=== PATIENT | female | born 1980 | race Caucasian/White ===

== ENCOUNTER 2023-05-21 12:29 | Outpatient (CLI) | payer BC | END 2023-05-21 12:30 | disposition home or self-care (01) | LOC: CSHLAB 12:29 | PROVIDERS: ATTEND Obstetrics & Gynecology | DX: Z01.812 Encounter for preprocedural laboratory examination (principal); D25.9 Leiomyoma of uterus, unspecified | CPT/HCPCS: 84703; 85027; 86850; 86900; 86901 ==

== ENCOUNTER 2023-05-27 07:40 | Observation (INO) | payer BC ==
[2023-05-21 13:02] VITALS: BMI 23.6
[2023-05-21 14:00] LABS: Hematocrit 37.7 % (34.9-44.5); Hemoglobin 12.6 g/dL (12.0-15.5); Mean Corpuscular HGB CONC 33.4 g/dL (32.0-36.0); Mean Corpuscular Hemoglobin 26.6 pg (27.0-33.0); Mean Corpuscular Volume 79.7 fl (81.6-98.3); Mean Platelet Volume 10.7 fl (7.4-10.4); Platelet Count 328 10x3/uL (150-450); RBC Distribution Width 22.6 % (11.5-14.5); Red Blood Cell (RBC) Count 4.73 10x6/uL (3.90-5.03); White Blood Cell (WBC) Count 8.8 10x3/uL (3.5-10.5)
[2023-05-21 15:23] LABS: BHCG - Serum Negative (NEGATIVE); Pregs Control Background? CLEAR/WHITE (CLR/WHITE); Pregs Control Bar Appear? YES (CONTROL BAR)
[2023-05-27] MEDS ORDERED: CeleCOXIB 100 MG CAP ONE (07:57)
[2023-05-27] MEDS ORDERED: Famotidine/PF 20 mg/2ml Vial ONE (07:58)
[2023-05-27] MEDS ORDERED: Gabapentin 300 MG CAP ONE ×2 (07:58→08:13)
[2023-05-27] MEDS ORDERED: Bupivacaine PF 0.5% 30 ML VIAL ONE (09:47)
[2023-05-27] MEDS ORDERED: PROPOFOL 20 ML ONE (09:47)
[2023-05-27] MEDS ORDERED: Ondansetron PF 4 MG/2 ML Vial ONE (09:47)
[2023-05-27] MEDS ORDERED: Dexamethasone 20 MG/5 ML VIAL ONE (09:47)
[2023-05-27] MEDS ORDERED: fentaNYL 50 mcg/mL 1 mL Vial ONE (09:47)
[2023-05-27] MEDS ORDERED: Lidocaine 1% PF 5 ML VIAL ONE (09:47)
[2023-05-27] MEDS ORDERED: Rocuronium Bromide 10 MG/ML (10ML VIAL) ONE (09:47)
[2023-05-27] MEDS ORDERED: HYDROmorphone 0.5 MG/0.5 ML SYRINGE ONE (09:50)
[2023-05-27] MEDS ORDERED: SUGAMMADEX SODIUM 200 MG/2 ML VIAL ONE (09:51)
[2023-05-27] MEDS ORDERED: CEFAZOLIN 2 GM VIAL ONE (09:57)
[2023-05-27] MEDS ORDERED: Midazolam HCl 2 mg/2 ml Vial ONE (10:06)
[2023-05-27] MEDS ORDERED: ePHEDrine Sulfate 50 MG/10 ML VIAL ONE (11:14)
[2023-05-27] MEDS ORDERED: Ketorolac Tromethamine 30 MG (1 mL) VIAL ONE (11:37)
[2023-05-27] MEDS ORDERED: HYDROcodone/Acetaminophen 10/325 mg Tablet PO PRN (13:43)
[2023-05-27] MEDS ORDERED: diphenhydrAMINE 25 MG CAP PO PRN (13:43)
[2023-05-27] MEDS ORDERED: Bisacodyl 10 MG SUPP PR PRN (13:43)
[2023-05-27] MEDS ORDERED: Zolpidem Tartrate 5 MG TAB PO PRN (13:43)
[2023-05-27] MEDS ORDERED: Promethazine HCl 25 MG/ML VIAL IM PRN (13:43)
[2023-05-27] MEDS ORDERED: Ondansetron PF 4 MG/2 ML Vial IVP PRN (13:43)
[2023-05-27] MEDS: Lactated Ringer's 1,000 ML IV SCH (14:42)
[2023-05-27] MEDS: Morphine 2 MG/ML VIAL SLOW IVP PRN (14:47)
[2023-05-27] MEDS ORDERED: Morphine 2 MG/ML VIAL SLOW IVP PRN (15:45)
[2023-05-27] MEDS: Ketorolac Tromethamine 30 MG (1 mL) VIAL IVP SCH (17:21)
[2023-05-27] MEDS: HYDROcodone/Acetaminophen 10/325 mg Tablet PO PRN (17:21)
[2023-05-28] MEDS: Simethicone Chewable 80 MG TAB PO PRN (00:02)
[2023-05-28 03:29] LABS: Hematocrit 29.3 % (34.9-44.5); Hemoglobin 9.7 g/dL (12.0-15.5); Mean Corpuscular HGB CONC 33.1 g/dL (32.0-36.0); Mean Corpuscular Volume 78.6 fl (81.6-98.3); Mean Platelet Volume 9.6 fl (7.4-10.4); Platelet Count 233 10x3/uL (150-450); Red Blood Cell (RBC) Count 3.73 10x6/uL (3.90-5.03); White Blood Cell (WBC) Count 15.7 10x3/uL (3.5-10.5)
[2023-05-28 07:52] VITALS: BP 90/50; TEMP 99.1
[2023-06-01] MEDS ORDERED: Ibuprofen 800 MG TAB PO SCH (21:00)
== END 2023-05-28 10:50 | disposition home or self-care (01) ==
LOC: CSHSDC 07:40 → CSHPP 14:00
PROVIDERS: ADMIT Obstetrics & Gynecology; ATTEND Obstetrics & Gynecology
PROC: 0UT94ZZ Resection of Uterus, Percutaneous Endoscopic Approach (ICD-10-PCS; principal; 2023-05-28)
PROC: 0UT74ZZ Resection of Bilateral Fallopian Tubes, Percutaneous Endoscopic Approach (ICD-10-PCS; 2023-05-28)
DX: D25.1 Intramural leiomyoma of uterus (principal); N80.03 Adenomyosis of the uterus; N87.0 Mild cervical dysplasia; N88.8 Other specified noninflammatory disorders of cervix uteri; N85.01 Benign endometrial hyperplasia; D50.0 Iron deficiency anemia secondary to blood loss (chronic); Z87.59 Personal history of other complications of pregnancy, childbirth and the puerperium; Z79.899 Other long term (current) drug therapy
CPT/HCPCS: 84703; 85027; 86850; 86900; 86901; 88307; J0665; J1100; J1170; J1885; J2250; J2272; J2405; J2704; J3010; J7120; S0028